=== PATIENT | female | born 1965 | race Caucasian/White ===

== ENCOUNTER 2018-09-30 14:54 | Emergency (ER) | payer OTHER, SELFPAY ==
[2018-09-30 14:56] VITALS: BP 134/72; PULSE 85; RESP 16; TEMP 36.4; O2SAT 94; BMI 28.7
--- NOTE | 2018-09-30 15:58 | EKG12_ITS ---
Test Reason : NAUSEA/VOMITING Blood Pressure : / mmHG Vent. Rate : 079 BPM Atrial Rate : 079 BPM P-R Int : 158 ms QRS Dur : 072 ms QT Int : 392 ms P-R-T Axes : 037 043 058 degrees QTc Int : 449 ms Normal sinus rhythm Normal ECG Confirmed by KAREN PERKINS, LINDSAY ([id number]), editor news MONICA PLASCENCIA ([id number]) on 10/01/2018 12:14:33 PM Referred By: ASHOK/VANDANA Confirmed By:LINDSAY JONES MD
--- NOTE | 2018-09-30 15:59 | ED.VISSUMM ---
- ER Visit Summary Date of Service: 09/30/18 Chief Complaint: [Vomiting diarrhea, and heartburn/chest pain] History of Present Illness: The patient is a 53 F [the emergency department with complaint of heartburn off and on for over a month. Patient states that caffeine really seems to trigger the pressure in her chest. She denies any exertional symptoms. Patient was seen at her primary care physician's office today and was referred to the emergency department. Patient states that over the last week also she has had vomiting and diarrhea and been quite nauseated and does not want to eat. Patient is thrown up twice today has had 3-4 watery stools. She denies any sick contacts. She denies any fevers. She denies eating any undercooked foods. She denies recent travel. She denies recent antibiotic usage. No family history of heart disease. Patient otherwise has no medical problems.] Physical Examination: [HEENT-PERRLA, EOMI. Cranial nerves II through XII grossly intact. TMs clear. Mucous membranes moist. No adenopathy. Cardiovascular-regular rate and rhythm without murmur or ectopy Lungs-clear to auscultation, chest wall stable without crepitus or subcu emphysema Abdomen-normoactive bowel sounds, soft, nontender, no rebound or rigidity, no peritoneal signs. Extremities-intact ?4, normal range of motion, normal pulses, atraumatic] Test Results: [EKG obtained on arrival shows sinus rhythm with a ventricular rate of 79 bpm with no acute segment changes. CBC with differential showed a white count of 4.1, hemoglobin 14, hematocrit 42, platelets 202. Chemistries were unremarkable. LFTs were normal. Lipase was 95. Troponin is less than 0.15. Chest x-ray showed nothing acute.] Emergency Department Course and Treatment: [Patient was given a liter normal same fluid bolus as well as Zofran 4 mg IV. She did feel improved after treatment. At this point I feel she is very low risk for acute coronary syndrome as she has no risk factors and no family history. Suspect symptoms more GI related such as GERD. Patient in agreement with this. I suspect patient also likely has a viral gastroenteritis.] Treatment Plan: [She will be started on Prevacid, Zofran, and advised to use Imodium for the diarrhea. She is to follow-up with her primary care physician within next 5 to 7 days.] Disposition: [Discharged home stable condition] Impression: [Viral gastroenteritis GERD Chest pain-atypical] This note was generated with [employer] dictation software. It may contain incorrect words, spelling, and punctuation that were not noted in review of the chart prior to signing ED Disposition - Plan for ED Patient: Referrals: Wendy Pitts MD [Primary Care Provider] -
[2018-09-30] MEDS: 0.9% Normal Saline 1,000 ML 1000 ML IV (16:31)
[2018-09-30] MEDS: Ondansetron 4 MG/2 ML Vial IV (16:32)
[2018-09-30 16:35] LABS: Absolute Lymphocyte Count 0.65 X10^3/ul (0.83-4.51); Absolute Neutrophil Count 2.9 X10^3/uL (2.0-7.7); Basophil# 0.01 X10^3/uL; Basophil% 0.2 % (0-1); Eosinophil# 0.05 X10^3/uL; Eosinophils% 1.2 % (0-5); Hematocrit 41.7 % (37-47); Hemoglobin 14.1 g/dl (12.0-15.0); Lymphocyte # 0.65 X10^3/ul (4.0); Lymphocyte % 15.7 % (19-41); Mean Corp Hgb Conc 33.8 g/gl (32-36); Mean Corpuscular Hgb 28.7 pg (27.0-32.0); Mean Corpuscular Volume 84.9 fL (81-99); Mean Platelet Vol. 9.8 fl (6.2-12.0); Monocyte# 0.53 X10^3/uL; Monocyte% 12.8 % (0-10); Neutrophil # 2.87 X10^3/uL (2.7-7.7); Neutrophil % 69.6 % (47-70); Platelet Count 202 K/mm3 (150-450); RBC Distribution Width CV 12.8 % (11.6-14.6); RBC Distribution Width SD 39.4 fl (35.1-43.9); Red Blood Count 4.91 M/mm3 (4.2-5.4); White Blood Count 4.1 K/mm3 (4.4-11.0)
--- NOTE | 2018-09-30 16:41 | RAD_ITS ---
STUDY: X-RAY CHEST REASON FOR EXAM: Female, 53 years old. Nausea vomiting diarrhea TECHNIQUE: Single frontal view of the chest. COMPARISON: None. FINDINGS: The lungs are clear and expanded. There is no demonstrated pleural abnormality. Normal size heart. Normal mediastinum and karolina. Normal visualized pulmonary arteries. Normal visualized aortic arch and descending thoracic aorta. Normal visualized thoracic spine. Normal visualized ribs, clavicles, and shoulders. There is no demonstrated abnormality of the visualized soft tissue structures of the upper abdomen. RAD/Chest 1 View (Portable) IMPRESSION: Normal x-ray examination of the chest. Electronically Signed: Andry Orozco MD at 17:04 EDT Tel , Service support ,
[2018-09-30 16:46] LABS: POSITIVE COUNT NO; POSITIVE DIFFERENTIAL NO; POSITIVE MORPHOLOGY NO
[2018-09-30 16:53] LABS: AST(SGOT) 19 U/L (15-37); Alanine Aminotransfer ALT/SGPT 38 U/L (13-56); Albumin, Serum 3.8 g/dL (3.2-5.0); Alkaline Phosphatase 91 U/L (45-117); Anion Gap 7 (5-15); BUN 14 mg/dL (7-18); BUN/Creat Ratio 19.2 RATIO (10-20); Calcium,Total 8.7 mg/dL (8.5-10.1); Chloride 106 mmol/L (98-107); Creatinine, Serum 0.73 mg/dL (0.55-1.02); EST Glomerular Filtration Rate 89 mL/min (>60); Est Glom Filt Rate - Afr Amer 107 mL/min (>60); Estimated Creatinine Clearance 83.43 ml/min; Globulin 3.7 g/dL (2.2-4.2); Glucose 89 mg/dL (74-106); Lipase 95 U/L (73-393); Potassium 3.9 mmol/L (3.5-5.1); Protein, Total 7.5 g/dL (6.4-8.2); Sodium Level 139 mmol/L (136-145)
--- NOTE | 2018-09-30 17:19 | ED.DEP ---
ED Disposition - Plan for ED Patient: Instructions: GASTROENTERITIS, Viral (6y-Adult), GERD (Adult), CHEST PAIN, Uncertain Cause Prescriptions: Lansoprazole [Prevacid] 30 mg PO DAILY #30 cap Prescription Printed Ondansetron [Zofran Odt] 4 mg PO Q8H PRN PRN #14 tab PRN Reason: Vomiting Prescription Printed Referrals: Wendy Pitts MD [Primary Care Provider] - 5-7 Days
[2018-09-30 17:40] VITALS: BP 137/72; PULSE 84; RESP 18
== END 2018-09-30 17:42 | disposition home or self-care (01) ==
LOC: ED 16:36
PROVIDERS: Emergency Provider Emergency Medicine; Family Provider Internal Medicine; PCP Internal Medicine
DX: A08.4 Viral intestinal infection, unspecified (principal); K21.9 Gastro-esophageal reflux disease without esophagitis; R07.89 Other chest pain
CPT/HCPCS: 71045; 80053; 83690; 84484; 85025; 93005; 96361; 96374; 99285; J7030; J2405

== ENCOUNTER 2022-04-14 16:07 | Emergency (ER) | payer OTHER, SELFPAY ==
[2022-04-14 16:09] VITALS: BP 149/83; PULSE 75; RESP 18; TEMP 36.4; O2SAT 96; BMI 29.0
--- NOTE | 2022-04-14 16:55 | EDS_ITS ---
HPI HPI - Fall History of Present Illness Chief Complaint: Fall Narrative Narrative: [id number] female with bilateral thoracic back and rib pain from a fall that she sustained at 530 this morning, approximately 11 and half hours ago. She states that she slipped on the ice and fell onto her thoracic back. She denies hitting her head or loss of consciousness. Throughout the day, she is having increasing pain radiating from her thoracic spine bilaterally and in her ribs. It hurts when she moves or tries to breathe. She has past medical history of lumbar surgery where she had discectomy, then a second surgery and reportedly they put a spacer device in. Her pain is not in her lumbar spine, but more in her mid back, and outward on the posterior aspect. She denies other injury. She took 3 ibuprofen today without relief. PFSH PFSH Medical History no medical history Home Medications hydrocodone-acetaminophen 5-325mg 5mg-325mg 1 tab PO Q6H PRN pain 3 days #12 tabs 04/14/22 [Rx Last Taken Unknown] Allergy/AdvReac Type Severity Reaction Status Date / Time No Known Allergies Allergy Verified 04/14/22 16:08 Surgical History Previous back surgery Social History Smoking Status: Never smoker ROS ROS ED ROS Narrative Constitutional: No fever, no chills. HEENT: No sore throat. No neck pain. No loss of vision. No rhinorrhea. Cardiovascular: Posterior rib and thoracic back/chest pain. No palpitations. No pedal edema. Respiratory: No cough, no shortness of breath. Abdominal: No abdominal pain. No nausea. No vomiting. Genitourinary: No dysuria. No hematuria. Musculoskeletal: No myalgias. No arthralgias. Neurologic: No headaches. No dizziness. No lightheadedness. Skin: No rash. No change in color. Psychiatric: No depression. No anxiety. EXAM Physical Exam Narrative Exam Narrative: Afebrile. Vital signs noted. HEENT: Normocephalic. Atraumatic. PERRL, EOMI. Neck soft and supple. No point tenderness or step off. Cardiovascular: Regular rate and rhythm. No murmurs, rubs, or gallops appreciated. Positive tenderness to palpation posterior ribs, lower without crepitance. No step-off of thoracic spine. Respiratory: No tachypnea. Lungs clear to auscultation bilaterally. Gastrointestinal: Abdomen soft, nontender, with normoactive bowel sounds. No rebound or guarding. Neurological: Awake. Alert. Nonfocal, nonlateralizing. Skin: No rash. Normal color. No pallor. Musculoskeletal: No pedal edema. Full range of motion extremities. Const Vital Signs: 04/14/22 16:09 04/14/22 16:39 Temperature 97.6 F L Temperature Source Temporal Pulse Rate 75 Respiratory Rate 18 Respiratory Effort Normal Non-Labored Respiratory Depth Normal Respiratory Pattern Normal Blood Pressure 149/83 H Blood Pressure Mean 105 Pulse Ox 96 Oxygen Delivery Method Room Air Room Air MDM MDM MDM Narrative Medical decision making narrative: She was given a Purcell tablet here for analgesia. She is afebrile and her pulse ox is 96% on room air without evidence of hypoxia. She is not tachycardic. Bilateral rib and PA chest x-rays were obtained. I interpreted her x-rays. I see no evidence of pneumothorax or displaced rib fracture. At this point in time, upon repeat examination at approximately 1815, she is resting more comfortably on the cot. She states her pain is improved with the pain pill. I do feel that she would merit 3 days of narcotic pain medication to help her as she was told that all rib x-rays do not necessarily show up on x-rays. She was told to take deep inspirations at least 10 times every hour while awake to prevent pneumonia. She will follow-up with her primary care provider in a week if not improving. I feel she be discharged safely home with follow-up. Return instructions to the emergency department were reviewed. Disposition is discharged home in stable condition. Radiography Diagnostic Testing: Clinical Impression(s) from Imaging Studies Ribs w/Chest X-Ray 04/14/22 17:30 IMPRESSION: Negative chest and ribs series. Electronically Signed: Yael Garcia MD at 18:06 EST Reading Location ID and State: [id number] / Tel , Service support , Discharge Plan Triage Chief Complaint: Fall Other Complaint: Back ED Provider: Manny Barker Dx/Rx/DC Orders Clinical Impression: Fall, Thoracic back pain, Bilateral contusion of ribs Instructions: ED Back Contusion, ED Mechanical Fall, ED Bruise, Rib Prescriptions: New hydrocodone-acetaminophen 5-325 mg tablet 1 tab PO Q6H PRN (Reason: pain) 3 Days Qty: 12 0RF Primary Care Provider: Wendy Pitts Referrals: Wendy Pitts MD [Primary Care Provider] - 1 Week if not improving Disposition Disposition: Home, Self Care
[2022-04-14] MEDS: HYDROcodone Bitartrate/Apap 5/325 Tablet PO (17:09)
--- NOTE | 2022-04-14 17:30 | RAD_ITS ---
INDICATION: Fall, Pain EXAMINATION/TECHNIQUE: X-RAY - XR Ribs 4 Views W/ PA Chest Bilateral COMPARISON: None. FINDINGS: LINES/DEVICES: None. LUNGS: No consolidation, edema or effusion. No pneumothorax. MEDIASTINUM AND CARDIOVASCULAR STRUCTURES: Cardiac silhouette not enlarged. Central airways and mediastinal contour are unremarkable. RIBS AND OSSEOUS STRUCTURES: Unremarkable. No evidence of displaced rib fractures. RAD/Ribs Jose Antonio Min 4V w/PA Chest IMPRESSION: Negative chest and ribs series. Electronically Signed: Yael Garcia MD at 18:06 EST Reading Location ID and State: [id number] / Tel , Service support ,
[2022-04-14 18:12] VITALS: BP 145/86; PULSE 73; RESP 18; TEMP 36.7; O2SAT 99
== END 2022-04-14 19:29 | disposition home or self-care (01) ==
PROVIDERS: Emergency Provider Emergency Medicine; PCP Internal Medicine; Visit Provider Emergency Medicine
DX: S20.213A Contusion of bilateral front wall of thorax, initial encounter (principal); W00.9XXA Unspecified fall due to ice and snow, initial encounter; M54.6 Pain in thoracic spine
CPT/HCPCS: 71111; 99283